=== PATIENT | female | born 1955 | race American Indian/Alaskan Native ===

== ENCOUNTER 2021-07-10 12:02 | Outpatient (CLI) | payer MEDICARE ==
--- NOTE | 2021-07-10 15:48 | Cat Scan Report ---
CT abdomen pelvis wo con INDICATION: CALCULUS OF KIDNEY. COMPARISON: None TECHNIQUE: Abdominal and pelvic CT exam performed. All CT scans at this location are performed using CT dose reduction for ALARA by means of automated exposure control. FINDINGS: CT ABDOMEN and PELVIS: Lung Bases: No significant abnormality. Liver: 2.0 cm hypoattenuating hepatic segment 2 lesion. Biliary: No significant abnormality. Spleen: No significant abnormality. Pancreas: No significant abnormality. Adrenals: No significant abnormality. Kidneys: No left renal stones. Punctate right upper pole nonobstructing stone. Bulky right lower pole calcification measuring up to 1.7 m which appears to be along the periphery of the cyst (image 9 ser ies 2). There is also a subcentimeter adjacent cyst posteriorly. Bilateral simple renal cysts are pre sent. No suspicious lesion. Lymphatics: Small focal mildly prominent 1.5 cm lymph node is seen in the peritoneum on image 70 of s eries 2.. Vasculature: No significant abnormality. Bowel: Short segment of bowel wall thickening within the transverse colon with small quantity of surr ounding stranding (best seen on image 21 series 2). No underlying diverticuli. Normal appendix. Pelvis: No significant abnormality. Osseous Structures: No aggressive osseous lesion. Additional Findings: None IMPRESSION: 1. Short segment of bowel wall thickening in the transverse colon is nonspecific but concerning for a n underlying lesion. Although focal colitis is a consideration. Recommend colonoscopy for further katerin luation. 2. Nonspecific 2 cm liver lesion in the left hepatic lobe. This could represent a hepatic metastasis if there is underlying neoplasm or could be benign in etiology. Recommend multiphase CT for further e valuation after colonoscopy. 3. Adjacent prominent lymph node measuring 1.5 cm. If there is underlying neoplasm this would be conc erning for ev metastasis. Signer Name: Maxime Roberts MD Signed: 07/10/2021 3:44 PM Workstation Name: [id number]
== END 2021-07-10 12:03 | disposition home or self-care (01) ==
LOC: CT 12:02
PROVIDERS: ATTEND Urology
DX: N20.0 Calculus of kidney (principal); N28.1 Cyst of kidney, acquired; K76.89 Other specified diseases of liver
CPT/HCPCS: 74176